=== PATIENT | female | born 1950 | race Caucasian/White ===

== ENCOUNTER 2024-06-22 18:40 | Inpatient (IN) ==
[2024-06-22] MEDS: fentaNYL 100 mcg/2 ml 50 MCG/ML VIAL IV ONE ×2 (19:51→21:10)
[2024-06-22 22:20] LABS: Mean Corpuscular Hemoglobin 23.1 pg (27-33); Mean Corpuscular Hgb Conc 31.5 g/dL (31-36); Mean Corpuscular Volume 73.4 fL (80-97); Mean Platelet Volume 8.7 fL (7.5-11.2); Platelet Count 313 10^3/uL (150-450); Red Blood Count 4.77 10^6/uL (3.63-4.92); Red Cell Distribution Width 18.4 % (12-17); White Blood Count 23.2 10^3/uL (3.8-11.8)
[2024-06-22 22:26] LABS: Activated Partial Thrombo Time 32.6 seconds (26.0-38.0); INR 1.02 (0.85-1.14)
[2024-06-22 22:42] LABS: ABS Basophils 0.2 10^3/uL (0.0-0.1); ABS Eosinophils 0.1 10^3/uL (0.0-0.5); ABS Lymphocytes 1.9 10^3/uL (1.0-4.8); ABS Monocytes 1.1 10^3/uL (0.0-0.9); ABS Neutrophils 19.9 10^3/uL (1.5-7.6); Anisocytosis 1+; Eosinophil % 0.2 %; Hypochromasia 1+; Lymphocyte % 8.2 %; Microcytosis 2+
[2024-06-22] MEDS ORDERED: Albuterol HFA INHALER 8 gm MDI INH PRN (23:00)
[2024-06-22 23:18] LABS: Albumin 4.3 g/dL (3.2-5.2); Albumin/Globulin Ratio 1.6 (1-3); Calcium 9.2 mg/dL (8.6-10.3); Creatinine, Serum 1.11 mg/dL (0.51-0.95); Globulin 2.7 g/dL (2-4); Potassium 4.9 mmol/L (3.5-5.0); Total Bilirubin 0.7 mg/dL (0.2-1.0); eGFR CKD-EPI 52.5 (>60)
[2024-06-22] MEDS: NS 0.9% 1000 ml BAG 1,000 ML IV SCH (23:58)
[2024-06-23] MEDS ORDERED: Albuterol/Ipratropium NEB.SOL (2.5/0.5 MG) 3 ML NEB.SOLN INH PRN (00:43)
[2024-06-23] MEDS: Ondansetron 4 mg VIAL 2 MG/ML 2 ml VIAL IV PRN (02:40)
[2024-06-23 05:25] LABS: Urine Appearance Clear; Urine Bilirubin Negative (Negative); Urine Blood Negative (Negative); Urine Color Light-Yellow; Urine Glucose Negative (Negative); Urine Ketones Negative (Negative); Urine Nitrite Negative (Negative); Urine Protein Negative (Negative); Urine Urobilinogen Negative (Negative)
[2024-06-23] MEDS ORDERED: DULOXETINE 60 MG PO SCH (09:00)
[2024-06-23 09:56] LABS: C Reactive Protein 9.48 mg/L (<8.01); Calcium 8.4 mg/dL (8.6-10.3); Creatinine, Serum 1.99 mg/dL (0.51-0.95); Potassium 5.1 mmol/L (3.5-5.0)
[2024-06-23 09:57] LABS: ABS Basophils 0.2 10^3/uL (0.0-0.1); ABS Lymphocytes 1.2 10^3/uL (1.0-4.8); ABS Monocytes 1.1 10^3/uL (0.0-0.9); ABS Neutrophils 31.5 10^3/uL (1.5-7.6); Eosinophil % 0.1 %; Hematocrit 34.5 % (35-45); Hemoglobin 10.6 g/dL (11.5-14.3); Lymphocyte % 3.6 %; Mean Corpuscular Hgb Conc 30.6 g/dL (31-36); Mean Corpuscular Volume 75.2 fL (80-97); Mean Platelet Volume 8.9 fL (7.5-11.2); Platelet Count 267 10^3/uL (150-450); Red Cell Distribution Width 18.6 % (12-17)
[2024-06-23] MEDS: DULoxetine DR 60 mg CAP PO SCH (10:11)
[2024-06-23] MEDS: Heparin 5000 UNITS/ML 1 mL VIAL SUBCUT SCH (11:01)
[2024-06-23] MEDS: Lactated Ringers 1000 ml BAG 1,000 ML IV ONE ×2 (11:02→19:17)
[2024-06-23] MEDS: CMCS: FLUTICAS/UMECLI/VILANT 100-62.5-25 MDI (NF) INH SCH (11:02)
[2024-06-23 12:46] LABS: Osmolality Serum 286 mOsm/kg (275-295)
[2024-06-23] MEDS: SODIUM ZIRCONIUM CYCLOSILICATE 5 GM PACKET PO ONE (13:39)
[2024-06-23] MEDS: cefTRIAXone 1 gm/50 mL D5W 1 GM/50 ML BAG IV SCH (16:23)
[2024-06-23] MEDS: NS 0.9% 500 ml BAG 500 ML IV ONE (16:58)
[2024-06-23] MEDS: Azithromycin 500 mg/250 ml NS 500 MG/250 ML BAG IVPB SCH (17:51)
[2024-06-23 18:42] LABS: Urine Osmo 352 mOsm/kg (150-1150)
[2024-06-23 18:43] LABS: Urine Appearance Turbid; Urine Bilirubin Negative (Negative); Urine Blood Trace (Negative); Urine Color Yellow; Urine Glucose Negative (Negative); Urine Ketones Negative (Negative); Urine Nitrite Negative (Negative); Urine Protein 1+ (>=30 mg/dL) (Negative); Urine Specific Gravity 1.017 (1.002-1.030); Urine Urobilinogen Negative (Negative); Urine pH 5.5 (5.0-8.0)
[2024-06-23 18:53] LABS: Urine Bacteria 3+ /HPF (Absent); Urine Red Blood Cell 3+(>10/hpf) /HPF (0-Trace); Urine Squamous Epithelial Cell Present /HPF (Absent); Urine White Blood Cell 3+(>20/hpf) /HPF (0-Trace)
[2024-06-23] MEDS: Pantoprazole VIAL 40 MG VIAL IV ONE (18:54)
[2024-06-23 18:56] LABS: Hematocrit 27.3 % (35-45); Hemoglobin 8.4 g/dL (11.5-14.3)
[2024-06-23] MEDS: Acetaminophen IV 1 GM/100ML 1,000 MG/100 ML BAG IV PRN (19:30)
[2024-06-23] MEDS: Acetaminophen IV 1 GM/100ML 1,000 MG/100 ML BAG IV ONE (20:17)
[2024-06-23] MEDS: Pantoprazole 80 mg in NS BAG 80 MG/250 ML BAG IV SCH (20:35)
[2024-06-24 02:31] LABS: Hematocrit 32.1 % (35-45); Hemoglobin 10.4 g/dL (11.5-14.3); Mean Corpuscular Hemoglobin 25.5 pg (27-33); Mean Corpuscular Hgb Conc 32.4 g/dL (31-36); Mean Corpuscular Volume 78.7 fL (80-97); Mean Platelet Volume 9.1 fL (7.5-11.2); Platelet Count 156 10^3/uL (150-450); Red Blood Count 4.07 10^6/uL (3.63-4.92); Red Cell Distribution Width 18.2 % (12-17); White Blood Count 12.8 10^3/uL (3.8-11.8)
[2024-06-24 03:20] LABS: Calcium 6.7 mg/dL (8.6-10.3); Creatinine, Serum 2.1 mg/dL (0.51-0.95); Magnesium 1.9 mg/dL (1.9-2.7); Potassium 4.3 mmol/L (3.5-5.0); eGFR CKD-EPI 24.4 (>60)
[2024-06-24] MEDS: CALCIUM GLUCONATE 1GM/50ML NS 1 GM/50 ML BAG IV SCH (04:20)
[2024-06-24 05:47] LABS: ABS Basophils 0.1 10^3/uL (0.0-0.1); ABS Eosinophils 0.1 10^3/uL (0.0-0.5); ABS Monocytes 0.5 10^3/uL (0.0-0.9); ABS Neutrophils 11.1 10^3/uL (1.5-7.6); ABS Nucleated RBC 0.01 10^3/ul; Eosinophil % 0.9 %; Hematocrit 31.7 % (35-45); Hemoglobin 10.3 g/dL (11.5-14.3); Lymphocyte % 7.8 %; Mean Corpuscular Hemoglobin 25.3 pg (27-33); Mean Corpuscular Hgb Conc 32.5 g/dL (31-36); Mean Platelet Volume 8.9 fL (7.5-11.2); Nucleated Red Blood Cells % 0.1 %/100WBC (0.0-0.8); Platelet Count 153 10^3/uL (150-450); Red Blood Count 4.07 10^6/uL (3.63-4.92); White Blood Count 12.7 10^3/uL (3.8-11.8)
[2024-06-24 06:19] LABS: C Reactive Protein 96.25 mg/L (<8.01); Calcium 7.6 mg/dL (8.6-10.3); Creatinine, Serum 1.93 mg/dL (0.51-0.95); Potassium 3.9 mmol/L (3.5-5.0)
[2024-06-24] MEDS ORDERED: fentaNYL 100 mcg/2 ml 50 MCG/ML VIAL ONE (07:40)
[2024-06-24] MEDS ORDERED: Rocuronium 50 mg VIAL 10 mg/ml 5 ml VIAL (50 mg) ONE (07:40)
[2024-06-24] MEDS ORDERED: Ondansetron 4 mg VIAL 2 MG/ML 2 ml VIAL ONE (07:50)
[2024-06-24] MEDS ORDERED: KETAMINE HCL 10 MG/ML 20 ml VIAL (200 MG) ONE (07:50)
[2024-06-24] MEDS ORDERED: Propofol 10 MG/ML 20 ML BTL ONE (07:50)
[2024-06-24] MEDS ORDERED: Dexamethasone IV 4 MG/ML VIAL 1 ml VIAL ONE (07:50)
[2024-06-24] MEDS ORDERED: Lidocaine 2% PF 5 ML VIAL ONE (07:51)
[2024-06-24] MEDS ORDERED: ACETAMINOPHEN IV PRN (09:09)
[2024-06-24 15:56] LABS: ABS Basophils 0.1 10^3/uL (0.0-0.1); ABS Eosinophils 0.1 10^3/uL (0.0-0.5); ABS Lymphocytes 0.9 10^3/uL (1.0-4.8); ABS Monocytes 0.6 10^3/uL (0.0-0.9); ABS Nucleated RBC 0.01 10^3/ul; Eosinophil % 0.4 %; Hematocrit 30.3 % (35-45); Hemoglobin 9.9 g/dL (11.5-14.3); Lymphocyte % 6.6 %; Mean Corpuscular Hemoglobin 25.7 pg (27-33); Mean Corpuscular Hgb Conc 32.7 g/dL (31-36); Mean Corpuscular Volume 78.6 fL (80-97); Mean Platelet Volume 8.9 fL (7.5-11.2); Nucleated Red Blood Cells % 0.1 %/100WBC (0.0-0.8); Platelet Count 169 10^3/uL (150-450); Red Blood Count 3.85 10^6/uL (3.63-4.92); Red Cell Distribution Width 18.1 % (12-17); White Blood Count 13.6 10^3/uL (3.8-11.8)
[2024-06-25 05:41] LABS: ABS Basophils 0.1 10^3/uL (0.0-0.1); ABS Eosinophils 0.1 10^3/uL (0.0-0.5); ABS Monocytes 0.6 10^3/uL (0.0-0.9); ABS Neutrophils 13.8 10^3/uL (1.5-7.6); Eosinophil % 0.9 %; Hemoglobin 9.9 g/dL (11.5-14.3); Lymphocyte % 6.3 %; Mean Corpuscular Hemoglobin 25.4 pg (27-33); Mean Corpuscular Hgb Conc 31.9 g/dL (31-36); Mean Corpuscular Volume 79.5 fL (80-97); Platelet Count 177 10^3/uL (150-450); Red Blood Count 3.89 10^6/uL (3.63-4.92); Red Cell Distribution Width 18.6 % (12-17); White Blood Count 15.6 10^3/uL (3.8-11.8)
[2024-06-25 05:59] LABS: Calcium 7.9 mg/dL (8.6-10.3); Creatinine, Serum 1.22 mg/dL (0.51-0.95); Phosphorus 3.5 mg/dL (2.5-5.0); eGFR CKD-EPI 46.9 (>60)
[2024-06-25 06:00] LABS: INR 1.21 (0.85-1.14)
[2024-06-25] MEDS: cefTRIAXone 1 gm/50 mL D5W 1 GM/50 ML BAG IV SCH (09:48)
[2024-06-25] MEDS: Acetaminophen IV 1 GM/100ML 1,000 MG/100 ML BAG IV SCH (10:43)
[2024-06-25] MEDS: Azithromycin 500 mg/250 ml NS 500 MG/250 ML BAG IVPB SCH (11:03)
[2024-06-25] MEDS ORDERED: Ondansetron 4 mg VIAL 2 MG/ML 2 ml VIAL ONE (14:34)
[2024-06-25] MEDS ORDERED: Propofol 0 MG/0 ML BTL ONE (14:34)
[2024-06-25] MEDS ORDERED: Dexamethasone IV 4 MG/ML VIAL 1 ml VIAL ONE (14:34)
[2024-06-25] MEDS ORDERED: Lidocaine 2% PF 5 ML VIAL ONE (14:34)
[2024-06-25] MEDS ORDERED: Rocuronium 50 mg VIAL 10 mg/ml 5 ml VIAL (50 mg) ONE (14:35)
[2024-06-25] MEDS ORDERED: fentaNYL 100 mcg/2 ml 50 MCG/ML VIAL ONE (14:35)
[2024-06-25] MEDS ORDERED: Midazolam 2 mg/2 ml VIAL 1 mg/ml 2 ml VIAL (2 mg) ONE (14:35)
[2024-06-26 06:39] LABS: Hemoglobin 9.1 g/dL (11.5-14.3); Mean Corpuscular Hemoglobin 25.7 pg (27-33); Mean Corpuscular Hgb Conc 32.5 g/dL (31-36); Mean Corpuscular Volume 78.9 fL (80-97); Mean Platelet Volume 8.5 fL (7.5-11.2); Platelet Count 192 10^3/uL (150-450); Red Blood Count 3.55 10^6/uL (3.63-4.92); Red Cell Distribution Width 19.4 % (12-17); White Blood Count 8.7 10^3/uL (3.8-11.8)
[2024-06-26 06:59] LABS: Calcium 7.8 mg/dL (8.6-10.3); Creatinine, Serum 0.97 mg/dL (0.51-0.95); Potassium 3.5 mmol/L (3.5-5.0); eGFR CKD-EPI 61.7 (>60)
[2024-06-26 08:29] LABS: ABS Basophils 0.1 10^3/uL (0.0-0.1); ABS Eosinophils 0.1 10^3/uL (0.0-0.5); ABS Lymphocytes 0.6 10^3/uL (1.0-4.8); ABS Monocytes 0.5 10^3/uL (0.0-0.9); ABS Neutrophils 7.3 10^3/uL (1.5-7.6); ABS Nucleated RBC 0.01 10^3/ul; Eosinophil % 1.6 %; Lymphocyte % 6.9 %; Nucleated Red Blood Cells % 0.1 %/100WBC (0.0-0.8)
[2024-06-26 08:30] LABS: Anisocytosis 2+; Hypochromasia 1+; Microcytosis 1+; Polychromasia 1+
[2024-06-26] MEDS: Pantoprazole VIAL 40 MG VIAL IV SCH (09:44)
[2024-06-26] MEDS ORDERED: Naloxone 0.4 mg VIAL 0.4 mg/ml 1 ml VIAL IV PRN (12:42)
[2024-06-26] MEDS ORDERED: fentaNYL 100 mcg/2 ml 50 MCG/ML VIAL IV PRN (12:42)
[2024-06-26] MEDS ORDERED: Ondansetron 4 mg VIAL 2 MG/ML 2 ml VIAL IV PRN (12:42)
[2024-06-26] MEDS ORDERED: NS 0.45% 1000 ml BAG 1,000 ML IV SCH (13:00)
[2024-06-26] MEDS ORDERED: Propofol 10 MG/ML 20 ML BTL ONE (17:39)
[2024-06-26] MEDS ORDERED: Midazolam 2 mg/2 ml VIAL 1 mg/ml 2 ml VIAL (2 mg) ONE (17:39)
[2024-06-26] MEDS ORDERED: fentaNYL 100 mcg/2 ml 50 MCG/ML VIAL ONE ×2 (17:39→18:49)
[2024-06-26] MEDS ORDERED: Lidocaine 2% PF 5 ML VIAL ONE (17:39)
[2024-06-26] MEDS ORDERED: Rocuronium 50 mg VIAL 10 mg/ml 5 ml VIAL (50 mg) ONE (17:42)
[2024-06-26] MEDS ORDERED: Dexamethasone IV 4 MG/ML VIAL 1 ml VIAL ONE (17:44)
[2024-06-26] MEDS ORDERED: Ondansetron 4 mg VIAL 2 MG/ML 2 ml VIAL ONE (17:44)
[2024-06-26] MEDS ORDERED: ceFAZolin VIAL VIAL ONE ×2 (18:23→18:25)
[2024-06-26] MEDS ORDERED: Phenylephrine 40 mcg/mL 10mL (400mcg) SYRINGE ONE (18:27)
[2024-06-26] MEDS ORDERED: Acetaminophen IV 1 GM/100ML 1,000 MG/100 ML BAG IV ONE (19:02)
[2024-06-26] MEDS ORDERED: Bupivacaine 0.5% 50 ML MDV VIAL ONE (19:08)
[2024-06-26] MEDS ORDERED: Lactulose 30 ml UDC PO PRN (20:35)
[2024-06-26] MEDS ORDERED: Magnesium Hydroxide LIQ 30 ML UDC PO SCH (21:00)
[2024-06-26] MEDS ORDERED: Calcium Carb (TUMS) 500 mg CHEW TAB PO PRN (22:35)
[2024-06-27] MEDS: Pantoprazole VIAL 40 MG VIAL IV SCH (00:32)
[2024-06-27] MEDS: Lactated Ringers 1000 ml BAG 1,000 ML IV SCH ×2 (00:33→08:28)
[2024-06-27] MEDS: ceFAZolin 2 GM PREMIX 2 GM/50 ML BAG IV SCH (02:15)
[2024-06-27] MEDS: Magnesium Hydroxide LIQ 30 ML UDC PO SCH (02:30)
[2024-06-27] MEDS: Acetaminophen IV 1 GM/100ML 1,000 MG/100 ML BAG IV ONE (08:27)
[2024-06-27] MEDS: Buffered Lidocaine 1% SYRIN 1 ml INTRADERM ONE (08:27)
[2024-06-27 08:51] LABS: Hematocrit 25.5 % (35-45); Hemoglobin 8.2 g/dL (11.5-14.3); Mean Corpuscular Hemoglobin 25.5 pg (27-33); Mean Corpuscular Hgb Conc 32.3 g/dL (31-36); Mean Platelet Volume 8.4 fL (7.5-11.2); Platelet Count 206 10^3/uL (150-450); Red Blood Count 3.22 10^6/uL (3.63-4.92); Red Cell Distribution Width 19.8 % (12-17); White Blood Count 10.6 10^3/uL (3.8-11.8)
[2024-06-27 09:10] LABS: Calcium 7.7 mg/dL (8.6-10.3); Creatinine, Serum 0.81 mg/dL (0.51-0.95); Potassium 3.5 mmol/L (3.5-5.0); eGFR CKD-EPI 76.6 (>60)
[2024-06-27 09:28] LABS: ABS Lymphocytes 0.3 10^3/uL (1.0-4.8); ABS Monocytes 0.3 10^3/uL (0.0-0.9); ABS Neutrophils 9.9 10^3/uL (1.5-7.6); ABS Nucleated RBC 0.02 10^3/ul; Anisocytosis 1+; Lymphocyte % 3.2 %; Nucleated Red Blood Cells % 0.1 %/100WBC (0.0-0.8); Polychromasia 1+
[2024-06-27] MEDS: Enoxaparin 40 MG/0.4 ML SYR SUBCUT SCH (21:24)
[2024-06-28 06:19] LABS: Hematocrit 22.5 % (35-45); Hemoglobin 7.2 g/dL (11.5-14.3); Mean Platelet Volume 8.2 fL (7.5-11.2); Platelet Count 220 10^3/uL (150-450)
[2024-06-28 12:56] LABS: Hematocrit 25.6 % (35-45); Hemoglobin 8.1 g/dL (11.5-14.3); Mean Corpuscular Hemoglobin 25.3 pg (27-33); Mean Corpuscular Hgb Conc 31.8 g/dL (31-36); Mean Corpuscular Volume 79.6 fL (80-97); Mean Platelet Volume 8.2 fL (7.5-11.2); Platelet Count 139 10^3/uL (150-450); Red Blood Count 3.21 10^6/uL (3.63-4.92); White Blood Count 13.4 10^3/uL (3.8-11.8)
[2024-06-29 06:00] LABS: Hemoglobin 7.7 g/dL (11.5-14.3); Mean Corpuscular Hemoglobin 25.1 pg (27-33); Mean Corpuscular Hgb Conc 32.3 g/dL (31-36); Mean Corpuscular Volume 77.8 fL (80-97); Mean Platelet Volume 7.9 fL (7.5-11.2); Platelet Count 231 10^3/uL (150-450); Red Blood Count 3.08 10^6/uL (3.63-4.92); Red Cell Distribution Width 19.6 % (12-17); White Blood Count 11.1 10^3/uL (3.8-11.8)
[2024-06-29 06:18] LABS: Calcium 7.5 mg/dL (8.6-10.3); Creatinine, Serum 0.58 mg/dL (0.51-0.95); eGFR CKD-EPI 95.5 (>60)
[2024-06-29] MEDS: KCL 20 MEQ/100 ML IVPREMIX 20 MEQ/100 ML BAG IV SCH (09:41)
[2024-06-29 11:16] LABS: Magnesium 1.8 mg/dL (1.9-2.7)
[2024-06-29 11:59] LABS: Rapid COVID-19 Molecular Undetected (Undetected)
[2024-06-29 12:53] LABS: Hematocrit 26.2 % (35-45); Hemoglobin 8.5 g/dL (11.5-14.3)
[2024-07-02] MEDS: Magnesium Hydroxide LIQ 30 ML UDC PO PRN (09:14)
[2024-07-02 10:11] VITALS: BP 125/69
[2024-07-02 11:22] LABS: Rapid COVID-19 Molecular Undetected (Undetected)
== END 2024-07-02 13:00 | DRG 480 ==
LOC: ED 18:40 → SUATTDRO 22:57 → EDHOLD 22:57 → SSU 06-23 02:14 → ICU 06-23 20:06 → SSU 06-24 17:52
PROVIDERS: ADMIT Internal Medicine; ATTEND Hospitalist
PROC: O.GIEGD (2024-06-25 13:35)